=== PATIENT | male | born 1995 | race African-American/Black ===

== ENCOUNTER 2017-11-21 11:22 | Emergency (ER) | payer BC ==
--- NOTE | 2017-11-21 13:36 | UC ---
Upper Extremity HPI - History of Current Complaint Chief Complaint: UCUpperExtremity Stated Complaint: SHOULDER PAIN Time Seen by Provider: 11/21/17 13:27 Hx Obtained From: Patient Onset/Duration: Sudden Onset - felt a "pop" in R shoulder area while wrestling today Severity Initially: Severe Severity Currently: Moderate - ice has helped Character: Sharp, Throbbing Aggravating Factor(s): Movement Alleviating Factor(s): Ice, Other: - posiition Associated Signs And Symptoms: Positive: Negative - Allergies/Home Medications Allergies/Adverse Reactions: Allergies Allergy/AdvReac Type Severity Reaction Status Date / Time No Known Allergies Allergy Verified 05/09/16 18:47 PMH/Surg Hx/FS Hx/Imm Hx Previously Healthy: Yes - Surgical History Surgical History: Yes Surgery Procedure, Year, and Place: tonsils and adenoids - Family History Known Family History: Positive: Hypertension - Social History Occupation: Student Lives: With Family Alcohol Use: None Substance Use Type: None Smoking Status (MU): Never Smoked Tobacco Review of Systems Constitutional: Negative Respiratory: Negative Cardiovascular: Negative Musculoskeletal: Decreased ROM - RUE Neurological: Negative Psychological: Negative All Other Systems Reviewed And Are Negative: Yes Physical Exam Triage Information Reviewed: Yes Appearance: Well-Appearing, No Pain Distress, Well-Nourished Vital Signs: Initial Vital Signs Temp 99.3 F 11/21/17 11:45 Pulse 67 11/21/17 11:45 Resp 18 11/21/17 11:45 BP 135/75 11/21/17 11:45 Pulse Ox 100 11/21/17 11:45 Vital Signs Reviewed: Yes Respiratory Exam: Normal Cardiovascular Exam: Normal Musculoskeletal: Positive: Other: - holding R arm in sling, point tenderness lateral clavical area. no shoulder deformity Neurological Exam: Normal Psychological Exam: Normal Skin Exam: Normal Diagnostics - Radiology No standard instances Xray Interpretation: No Acute Changes Upper Extremity Course/Dx - Differential Dx/Diagnosis Differential Diagnosis/HQI/PQRI: Fracture (Closed), Strain, Sprain, Other - shoulder dislocation, AC separation Provider Diagnoses: shoulder strain Discharge - Discharge Plan Condition: Stable Disposition: HOME Patient Education Materials: Muscle Strain (ED) Referrals: Hans Rodriguez MD [Primary Care Provider] - Prashanth Brady [Medical Doctor] - 2 Days (for recheck) Additional Instructions: ice area of pain, use sling for support ibuprofen 600mg every 6 hours as needed for pain
--- NOTE | 2017-11-21 13:53 | RAD ---
HISTORY: Pain after wrestling injury, right clavicle COMPARISONS: None VIEWS: 2, frontal and frontal oblique views of the right clavicle FINDINGS: BONE DENSITY: Normal. BONES: There is no displaced fracture. JOINTS: There is no arthropathy. The coracoclavicular and acromioclavicular intervals are normal. ALIGNMENT: There is no dislocation. SOFT TISSUES: Unremarkable. OTHER FINDINGS: None. IMPRESSION: NO ACUTE OSSEOUS INJURY. IF SYMPTOMS PERSIST, RECOMMEND REPEAT IMAGING.
[2017-11-21] MEDS ORDERED: Ibuprofen TAB* 400 MG PO ONE (14:04)
[2017-11-21] MEDS ORDERED: Ibuprofen TAB* 400 MG ONE (14:13)
[2017-11-21 14:25] VITALS: BP 149/71
== END 2017-11-21 14:25 | disposition home or self-care (01) ==
LOC: UCEAST 11:22
DX: S46.911A Strain of unspecified muscle, fascia and tendon at shoulder and upper arm level, right arm, initial encounter (principal); X58.XXXA Exposure to other specified factors, initial encounter; Y93.72 Activity, wrestling; Y92.39 Other specified sports and athletic area as the place of occurrence of the external cause
CPT/HCPCS: 99212; A9270-GY; G0463